=== PATIENT | female | born 1985 | race African-American/Black ===

== ENCOUNTER 2018-02-21 09:19 | Emergency (ER) | payer BC, MEDICAID ==
[2018-02-21] MEDS ORDERED: ACETAMINOPHEN 325 MG TABLET PO ONE (09:52)
[2018-02-21] MEDS ORDERED: CYCLOBENZAPRINE HCL 10 MG TABLET PO ONE (09:52)
--- NOTE | 2018-02-21 09:57 | ER Document Report ---
ED Extremity Problem, Upper - General Chief Complaint: Shoulder Pain Stated Complaint: LEFT ABDOMINAL PAIN Time Seen by Provider: 02/21/18 09:43 Mode of Arrival: Ambulatory Information source: Patient Notes: 32-year-old female presents to ED with complaint of left shoulder pain radiating to left shoulder and states sometimes her fingers feel a little stiff. She states the pain is also interscapular area. She states it started while she was carrying some grocery bags. She has not lifted anything heavy she has not fallen or injured herself in any way. Respirations are regular unlabored speaking in clear complete sentences ambulates with a steady gait and no acute distress at this time. TRAVEL OUTSIDE OF THE [place] IN LAST 30 DAYS: No - HPI Patient complains to provider of: Left, Arm, Shoulder Onset: This morning Recent injury: No Where: Home, Outdoors Quality of pain: Achy, Sharp Severity of pain: Moderate Pain Level: 3 Context: Other - Carrying grocery bags - Related Data Allergies/Adverse Reactions: No Known Allergies Allergy (Verified 12/24/15 14:34) Past Medical History - General Information source: Patient - Social History Smoking Status: Never Smoker Cigarette use (# per day): No Chew tobacco use (# tins/day): No Smoking Education Provided: No Frequency of alcohol use: None Drug Abuse: None Occupation: electrician assistant Lives with: Family Family History: Arthritis, DM, Hypertension, Malignancy Patient has suicidal ideation: No Patient has homicidal ideation: No - Medical History Medical History: Other - Morbidly obese at 169 kg - Past Medical History Cardiac Medical History: Reports: Hx Hypertension Pulmonary Medical History: Reports: Hx Asthma EENT Medical History: Reports: None Neurological Medical History: Reports: None Endocrine Medical History: Reports: Other - States she been told she is prediabetic Renal/ Medical History: Reports: None Malignancy Medical History: Reports: None GI Medical History: Reports: None Musculoskeltal Medical History: Reports Hx Musculoskeletal Deformity, Reports Other - Morbidly obese Skin Medical History: Reports None Psychiatric Medical History: Reports: None Traumatic Medical History: Reports: None Surgical Hx: Negative Past Surgical History: Reports: None, Hx Oral Surgery Review of Systems - Review of Systems Constitutional: No symptoms reported EENT: No symptoms reported Cardiovascular: No symptoms reported Respiratory: No symptoms reported Gastrointestinal: No symptoms reported Genitourinary: No symptoms reported Female Genitourinary: No symptoms reported Musculoskeletal: Joint pain, Muscle pain, Muscle stiffness. denies: Joint swelling Skin: No symptoms reported Hematologic/Lymphatic: No symptoms reported Neurological/Psychological: No symptoms reported Physical Exam - Vital signs Vitals: Temp Pulse Resp BP Pulse Ox 98.1 F 98 20 149/90 H 98 02/21/18 09:26 02/21/18 09:26 02/21/18 09:26 02/21/18 09:26 02/21/18 09:26 Interpretation: Normal - General General appearance: Appears well, Alert - HEENT Head: Normocephalic, Atraumatic Eyes: Normal Pupils: PERRL - Respiratory Respiratory status: No respiratory distress Chest status: Nontender Breath sounds: Normal Chest palpation: Normal - Cardiovascular Rhythm: Regular Heart sounds: Normal auscultation Murmur: No - Abdominal Inspection: Normal Distension: No distension Bowel sounds: Normal Tenderness: Nontender Organomegaly: No organomegaly - Back Back: Normal, Nontender - Extremities General upper extremity: Normal inspection, Normal color, Normal temperature General lower extremity: Normal inspection, Nontender, Normal color, Normal ROM , Normal temperature, Normal weight bearing. No: Cyndi's sign Shoulder: Tender, Limited ROM - Due to pain patient has full range of motion but it is with pain. No: Abrasion, Deformity, Dislocation, Ecchymosis, Instability, Laceration - Neurological Neuro grossly intact: Yes Cognition: Normal Orientation: AAOx4 Hendricks Coma Scale Eye Opening: Spontaneous Hendricks Coma Scale Verbal: Oriented Hendricks Coma Scale Motor: Obeys Commands Hendricks Coma Scale Total: 15 Speech: Normal Motor strength normal: LUE, RUE, LLE, RLE Sensory: Normal - Psychological Associated symptoms: Normal affect, Normal mood - Skin Skin Temperature: Warm Skin Moisture: Dry Skin Color: Normal Course - Re-evaluation Re-evalutation: 02/21/18 11:14 X-rays discussed with patient and written report of x-ray given to patient. Patient is given instructions on Tylenol and muscle relaxers and instructed to follow-up with orthopedics which will be open on Friday. Patient also follow- up with her primary doctor. Patient was able to verbalize understanding of instructions and agree agree with treatment plan. Patient was also encouraged to use ice and heat to the area. - Vital Signs Vital signs: Temp Pulse Resp BP Pulse Ox 98.1 F 98 20 149/90 H 98 02/21/18 09:26 02/21/18 09:26 02/21/18 09:26 02/21/18 09:26 02/21/18 09:26 - Diagnostic Test Radiology reviewed: Image reviewed, Reports reviewed Discharge - Discharge Clinical Impression: scapula area pain Shoulder pain, left Qualifiers: Chronicity: acute Qualified Code(s): M25.512 - Pain in left shoulder HTN (hypertension) Qualifiers: Hypertension type: unspecified Qualified Code(s): I10 - Essential (primary) hypertension Condition: Stable Disposition: HOME, SELF-CARE Additional Instructions: You were seen today for left shoulder and scapular pain with no acute injury. Exercise Program for the Shoulder Since the shoulder moves in so many directions, the joint attachment is weak. Muscles provide most of the stability to the shoulder. You must exercise your shoulder to prevent painful instability or stiffening. PASSIVE - These may be begun within a few days of the injury. While standing, lean forward, allowing the arm to hang down towards the floor. Move the arm in small circles while slowly twisting your chest towards and away from the hanging arm. Do this for one minute. ACTIVE - These may be performed when the doctor gives permission. Begin with the arms at the sides. Raise the arms forward (shoulder's width apart) until they reach shoulder level. Then slowly swing both arms back until they are aiming straight out away from each other. Then bring them forward again, and finally, lower them to your sides. Repeat 20 to 30 times. As you improve, put weights in your hands for the exercise. Start with one pound, and work up to 10 pounds. Never use more than is comfortable. Athletes may work up to 30 pounds. Acetaminophen Acetaminophen may be taken for pain relief or fever control. It's much safer than aspirin, offering a wider range of "safe" dosages. It is safe during . Some brand names are Tylenol, Panadol, Datril, Anacin 3, Tempra, and Liquiprin. Acetaminophen can be repeated every four hours. The following are maximum recommended dosages: WEIGHT Dose Drops Elixir Chewable( 80mg) (LBS.) drprs=droppers tsp=teaspoon 6 40 mg .4 ml (1/2) 6-11 80 mg .8 ml (full) 1/2 tsp 1 tab 12-16 120 mg 1 1/2 drprs 3/4 tsp 1 1/2 tabs 17-23 160 mg 2 drprs 1 tsp 2 tabs 24-30 240 mg 3 drprs 1 1/2 tsp 3 tabs 30-35 320 mg 2 tsp 4 tabs 36-41 360 mg 2 1/4 tsp 4 1 /2 tabs 42-47 400 mg 2 1/2 tsp 5 tabs 48-53 480 mg 3 tsp 6 tabs 54-59 520 mg 3 1/4 tsp 6 1 /2 tabs 60-64 560 mg 3 1/2 tsp 7 tabs 65-70 600 mg 3 3/4 tsp 7 1 /2 tabs 71-76 640 mg 4 tsp 8 tabs 77-82 720 mg 4 1/2 tsp 9 tabs 83-88 800 mg 5 tsp 10 tabs >89 pounds or adults 650 mg to 900 mg Acetaminophen can be repeated every four hours. Maximum daily dose not to exceed 4000 mg. These maximum recommended dosages are slightly higher than the dosages written on the product container, but these dosages are very safe and well below the toxic dosage for acetaminophen. Muscle Relaxers Muscle relaxing medications are usually prescribed for acute muscle spasm or injury to the neck and back. They are often combined with antiinflammatory pain medication for increased relief. You may stop the muscle relaxer when the pain and stiffness have improved. Start the medication again if spasms recur. Muscle relaxers may cause drowsiness, especially with the first dose. Do not operate machinery or drive while under the effects of the medication. Most muscle relaxers last up to 24 hours. Do not combine the medication with alcohol. FOLLOW-UP CARE: If you have been referred to a physician for follow-up care, call the physician s office for an appointment as you were instructed or within the next two days. If you experience worsening or a significant change in your symptoms, notify the physician immediately or return to the Emergency Department at any time for re-evaluation. Prescriptions: Cyclobenzaprine HCl [Flexeril 10 mg Tablet] 10 mg PO TIDP PRN #15 tab PRN Reason: Forms: Elevated Blood Pressure, Return to Work Referrals: SISI WOO PA-C [Primary Care Provider] - Follow up as needed YADIRA MEDINA MD [ACTIVE STAFF] - Follow up as needed
--- NOTE | 2018-02-21 11:04 | RADIOLOGY REPORT (SQ) ---
EXAM DESCRIPTION: SHOULDER LEFT 2 OR MORE VIEWS COMPLETED DATE/TIME: 02/21/2018 10:33 am REASON FOR STUDY: left shoulder and scapula pain COMPARISON: None. NUMBER OF VIEWS: Three views. TECHNIQUE: Internal rotation, external rotation, and Y view images acquired of the left shoulder. LIMITATIONS: None. FINDINGS: No acute fracture or bony abnormality identified. Minimal dorsal spondylosis. IMPRESSION: Normal left shoulder. TECHNICAL DOCUMENTATION: JOB ID: [id number] 2010 [employer]- All Rights Reserved Reading location - IP/workstation name: [email or web address]
[2018-02-21 11:24] VITALS: BP 149/87
== END 2018-02-21 11:24 | disposition home or self-care (01) ==
LOC: ER 09:19
DX: M25.512 Pain in left shoulder (principal); I10 Essential (primary) hypertension; J45.909 Unspecified asthma, uncomplicated; E66.01 Morbid (severe) obesity due to excess calories; Z68.43 Body mass index [BMI] 50.0-59.9, adult
CPT/HCPCS: 99283

== ENCOUNTER → 2018-08-14 | Outpatient (CLI) | payer OTHER ==
[2018-08-14 08:59] LABS: ABSOLUTE EOSINOPHILS # (AUTO) 0.3 10^3/uL (0.0-0.6); ABSOLUTE LYMPHOCYTES (AUTO) 2.4 10^3/uL (0.5-4.7); ABSOLUTE MONOCYTES (AUTO) 0.5 10^3/uL (0.1-1.4); ABSOLUTE NEUT (AUTO) 2.7 10^3/uL (1.7-8.2); BASOPHILS % (AUTO) 0.6 % (0-2); EOSINOPHILS % (AUTO) 4.9 % (0-6); HEMATOCRIT 38.3 % (36.0-47.0); HEMOGLOBIN 12.9 g/dL (12.0-15.5); MEAN CORPUSCULAR HEMOGLOBIN 29.7 pg (27.0-33.4); MEAN CORPUSCULAR HGB CONC 33.8 g/dL (32.0-36.0); MEAN CORPUSCULAR VOLUME 88 fl (80-97); MONOCYTES % (AUTO) 7.7 % (3-13); PLATELET COUNT 427 10^3/uL (150-450); RED BLOOD COUNT 4.35 10^6/uL (3.72-5.28); RED CELL DISTRIBUTION WIDTH 14.5 % (11.5-14.0); SEGMENTED NEUTROPHILS % (AUTO) 45.8 % (42-78); TOTAL CELLS COUNTED % (AUTO) 100 %; WHITE BLOOD COUNT 5.9 10^3/uL (4.0-10.5)
[2018-08-14 09:18] LABS: ALANINE AMINOTRANSFERASE 15 U/L (9-52); ALBUMIN 3.9 g/dL (3.5-5.0); ALKALINE PHOSPHATASE 75 U/L (38-126); ANION GAP 12 (5-19); ASPARTATE AMINO TRANSFERASE 16 U/L (14-36); BILIRUBIN,DIRECT 0.1 mg/dL (0.0-0.4); BILIRUBIN,TOTAL 0.2 mg/dL (0.2-1.3); BLOOD UREA NITROGEN 14 mg/dL (7-20); C-REACTIVE PROTEIN 16.8 mg/L (<10.0); CALCIUM 9.3 mg/dL (8.4-10.2); CARBON DIOXIDE 27 mmol/L (22-30); CHLORIDE 103 mmol/L (98-107); CHOLESTEROL 174.87 mg/dL (0-200); GLUCOSE 113 mg/dL (75-110); POTASSIUM 4.7 mmol/L (3.6-5.0); SODIUM 141.6 mmol/L (137-145); TOTAL PROTEIN 7.7 g/dL (6.3-8.2); TRIGLYCERIDES 80 mg/dL (<150)
[2018-08-14 09:27] LABS: DIRECT LDL 129 mg/dL (<100)
== END ==
LOC: CCC 08:10
PROVIDERS: ATTEND Family Medicine
DX: Z00.00 Encounter for general adult medical examination without abnormal findings (principal)
CPT/HCPCS: 36415; 80053; 80061; 82306; 83036; 85025; 86140; 86430

== ENCOUNTER → 2018-09-09 | Outpatient (CLI) | payer OTHER ==
--- NOTE | 2018-09-09 16:40 | RADIOLOGY REPORT (SQ) ---
EXAM DESCRIPTION: VENOUS UNILATERAL LOWER COMPLETED DATE/TIME: 09/09/2018 4:32 pm REASON FOR STUDY: RIGHT LEG PAIN M79.661 PAIN IN RIGHT LOWER LEG COMPARISON: None. TECHNIQUE: Dynamic and static emerson scale and color images acquired of the right leg venous system. S elected spectral images acquired with additional compression and augmentation maneuvers. The contrala teral common femoral vein and saphenofemoral junction were also imaged. Images stored on PACS. LIMITATIONS: None. FINDINGS: COMMON FEMORAL: Normal phasicity, compression and augmentation. No visualized echogenic ma terial on emerson scale. No defects on color images. FEMORAL: Normal compression and augmentation. No visualized echogenic material on emerson scale. No defe cts on color images. POPLITEAL: Normal compression, augmentation. No visualized echogenic material on emerson scale. No defec ts on color images. CALF VESSELS: Normal compression, augmentation. No visualized echogenic material on emerson scale. No de fects on color images. GSV and SSV: Normal compression, augmentation. No visualized echogenic material on emerson scale. No def ects on color images. ANY DEEP VENOUS INSUFFICIENCY: Not evaluated. ANY EVIDENCE OF POPLITEAL CYST: No. OTHER: No other significant finding. CONTRALATERAL COMMON FEMORAL VEIN AND SAPHENOFEMORAL JUNCTION: Normal phasicity, compression and augmentation. No visualized echogenic material on emerson scale. No de fects on color images. IMPRESSION: NO EVIDENCE DVT OR SVT IN THE RIGHT LEG. TECHNICAL DOCUMENTATION: JOB ID: [id number] [employer]- All Rights Reserved Reading location - IP/workstation name: [email or web address]
== END ==
LOC: SP 15:30
DX: M79.661 Pain in right lower leg (principal); M79.89 Other specified soft tissue disorders
CPT/HCPCS: 93971

== ENCOUNTER 2019-02-20 07:00 | Emergency (ER) | payer SELFPAY ==
[2019-02-20] MEDS ORDERED: KETOROLAC TROMETHAMINE 60 MG/2 ML SDV IM ONE (09:20)
--- NOTE | 2019-02-20 09:23 | ER Document Report ---
HPI - HPI Patient complains to provider of: Back pain Time Seen by Provider: 02/20/19 08:13 Pain Level: 2 Context: Patient is a 33-year-old morbidly obese female presents to the emergency department for generalized lower back pain and bilateral knee pain. Patient states this past week she "overdid it." States she is been moving and has been lifting a lot of heavy boxes. Patient states she has had continued lower back pain and now "clicking" in bilateral knees. States she does have a history of arthritis but was more concerned of her lower back pain. Patient's denying any urinary retention, loss of bowel or bladder. Patient's denying any numbness or tingling in any extremity. Patient states she finished her menstrual cycle yesterday. States she is not and is wishing to decline hCG testing prior to Toradol administration. Past medical history: Depression Medications: Wellbutrin Allergies: None Surgical history: None - CONSTITUTIONAL Constitutional: DENIES: Fever, Chills - EENT EENT: DENIES: Sore Throat, Ear Pain, Eye problems - NEURO Neurology: DENIES: Headache, Weakness, Vision blurred, Dizzinesss / Vertigo - CARDIOVASCULAR Cardiovascular: DENIES: Chest pain - RESPIRATORY Respiratory: DENIES: Trouble Breathing, Coughing - GASTROINTESTINAL Gastrointestinal: DENIES: Abdominal Pain, Black / Bloody Stools - URINARY Urinary: DENIES: Dysuria, Urgency, Frequency - REPRODUCTIVE Reproductive: DENIES: : - MUSCULOSKELETAL Musculoskeletal: REPORTS: Extremity pain Past Medical History - General Information source: Patient - Social History Smoking Status: Unknown if Ever Smoked Chew tobacco use (# tins/day): No Frequency of alcohol use: None Drug Abuse: None Family History: Arthritis, DM, Hypertension, Malignancy Patient has suicidal ideation: No Patient has homicidal ideation: No - Past Medical History Cardiac Medical History: Reports: Hx Hypertension Pulmonary Medical History: Reports: Hx Asthma Renal/ Medical History: Denies: Hx Peritoneal Dialysis Musculoskeletal Medical History: Reports Hx Musculoskeletal Deformity Past Surgical History: Reports: Hx Oral Surgery Vertical Provider Document - CONSTITUTIONAL Agree With Documented VS: Yes Notes: GENERAL: Morbidly obese alert, interacts well. No acute distress. HEAD: Normocephalic, atraumatic. EYES: Pupils equal, round, and reactive to light. Extraocular movements intact. ENT: Oral mucosa moist, tongue midline. [Nares patent, no nasal septal hematoma, TM's intact.] NECK: Full range of motion. Supple. Trachea midline. LUNGS: Clear to auscultation bilaterally, no wheezes, rales, or rhonchi. No respiratory distress. HEART: Regular rate and rhythm. No murmur ABDOMEN: Soft, non-tender. Non-distended. Bowel sounds present in all 4 quadrants. EXTREMITIES: Moves all 4 extremities spontaneously. No edema, normal radial and dorsalis pedis pulses bilaterally. No cyanosis. 5 out of 5 strength all 4 extremities. No pain upon palpation bilateral knees anterior and posterior. No obvious Vázquez's cyst noted bilaterally. BACK: no cervical, thoracic, lumbar midline tenderness. No saddle anesthesia, normal distal neurovascular exam. Bilateral paraspinal lumbar pain noted. NEUROLOGICAL: Alert and oriented x3. Normal speech. cranial nerves II through XII grossly intact PSYCH: Normal affect, normal mood. SKIN: Warm, dry, normal turgor. No rashes or lesions noted. - INFECTION CONTROL TRAVEL OUTSIDE OF THE [place] IN LAST 30 DAYS: No Course - Re-evaluation Re-evalutation: 02/20/19 09:30 Discussed treatment of Toradol, Flexeril, Lidoderm patches in the emergency department. Patient's pain does not seem to be spinal in nature. Upon palpation all of her pain is paraspinal bilateral lumbar region. Patient has 5 out of 5 strength in all 4 extremities. No urinary retention or loss of bowel or bladder. Patient wishes to decline Flexeril in the emergency department. States Flexeril typical makes her tired and she will take it at home. Discussed continued follow-up with primary care provider and close return precautions. Patient stable for discharge. - Vital Signs Vital signs: Temp Pulse Resp BP Pulse Ox 98.2 F 89 20 142/79 H 99 02/20/19 07:06 02/20/19 07:06 02/20/19 07:06 02/20/19 07:06 02/20/19 07:06 Discharge - Discharge Clinical Impression: Arthritis Lower back pain Qualifiers: Chronicity: acute Back pain laterality: bilateral Sciatica presence: without sciatica Qualified Code(s): M54.5 - Low back pain Obesity Qualifiers: Obesity type: unspecified obesity type Obesity classification: adult class 3 (BMI >= 40) Serious obesity comorbidity presence: unspecified whether serious comorbidity present Body mass index: BMI 50.0-59.9 Qualified Code(s): E66.01 - Morbid (severe) obesity due to excess calories; Z68.43 - Body mass index (BMI) 50-59.9, adult Condition: Stable Disposition: HOME, SELF-CARE Instructions: Low Back Pain ([facility]), Warm Packs ([facility]) Additional Instructions: You have been seen in the Emergency Department (ED) today for back pain. Your workup and exam have not shown any acute abnormalities and you are likely suffering from muscle strain or possible problems with your discs, but there is no treatment that will fix your symptoms at this time. Please take the naproxen that has been prescribed as directed. You should also purchase a local lidocaine cream such as "aspercreme with lidocaine" and use per bottle instructions to the affected area. Apply heat to the area as often as you are able. Continue to keep active and avoid prolonged periods of bed rest. Please follow up with your doctor as soon as possible regarding today's ED visit and your back pain. Return to the ED for worsening back pain, fever, weakness or numbness of either leg, or if you develop either (1) an inability to urinate or have bowel movements, or (2) loss of your ability to control your bathroom functions (if you start having "accidents"), or if you develop other new symptoms that concern you.concern you. Prescriptions: Cyclobenzaprine HCl [Flexeril 10 mg Tablet] 10 mg PO TIDP PRN #15 tab PRN Reason: Naproxen 500 mg PO BID #20 tablet Referrals: [facility] [Primary Care Provider] - Follow up as needed
[2019-02-20] MEDS ORDERED: LIDOCAINE 5% (700 MG) TRANSDERMAL ADH..PATCH TP ONE (09:31)
[2019-02-20 10:11] VITALS: BP 129/76
== END 2019-02-20 10:10 | disposition home or self-care (01) ==
LOC: ER 07:00
DX: A18.01 Tuberculosis of spine (principal); M54.5 Low back pain; E66.01 Morbid (severe) obesity due to excess calories; Z68.43 Body mass index [BMI] 50.0-59.9, adult; M54.9 Dorsalgia, unspecified; M25.561 Pain in right knee; M25.562 Pain in left knee; I10 Essential (primary) hypertension; J45.909 Unspecified asthma, uncomplicated
CPT/HCPCS: 99283; 96372; J1885

== ENCOUNTER → 2019-05-25 | Outpatient (CLI) | payer OTHER ==
[2019-05-25 15:44] LABS: ABSOLUTE BASOPHILS # (AUTO) 0.1 10^3/uL (0.0-0.2); ABSOLUTE EOSINOPHILS # (AUTO) 0.4 10^3/uL (0.0-0.6); ABSOLUTE LYMPHOCYTES (AUTO) 3.3 10^3/uL (0.5-4.7); ABSOLUTE MONOCYTES (AUTO) 0.5 10^3/uL (0.1-1.4); ABSOLUTE NEUT (AUTO) 2.7 10^3/uL (1.7-8.2); BASOPHILS % (AUTO) 0.9 % (0-2); EOSINOPHILS % (AUTO) 5.1 % (0-6); HEMATOCRIT 36.8 % (36.0-47.0); HEMOGLOBIN 12.2 g/dL (12.0-15.5); LYMPHOCYTES % (AUTO) 47.7 % (13-45); MEAN CORPUSCULAR HEMOGLOBIN 29.7 pg (27.0-33.4); MEAN CORPUSCULAR HGB CONC 33.1 g/dL (32.0-36.0); MEAN CORPUSCULAR VOLUME 90 fl (80-97); MONOCYTES % (AUTO) 7.6 % (3-13); PLATELET COUNT 437 10^3/uL (150-450); RED BLOOD COUNT 4.11 10^6/uL (3.72-5.28); RED CELL DISTRIBUTION WIDTH 14.2 % (11.5-14.0); SEGMENTED NEUTROPHILS % (AUTO) 38.7 % (42-78); TOTAL CELLS COUNTED % (AUTO) 100 %; WHITE BLOOD COUNT 6.9 10^3/uL (4.0-10.5)
[2019-05-25 16:17] LABS: ALBUMIN 4.1 g/dL (3.5-5.0); ALKALINE PHOSPHATASE 72 U/L (38-126); ANION GAP 9 (5-19); ASPARTATE AMINO TRANSFERASE 20 U/L (14-36); BILIRUBIN,DIRECT 0.3 mg/dL (0.0-0.4); BILIRUBIN,TOTAL 0.3 mg/dL (0.2-1.3); BLOOD UREA NITROGEN 12 mg/dL (7-20); CALCIUM 9.6 mg/dL (8.4-10.2); CARBON DIOXIDE 30 mmol/L (22-30); CHLORIDE 101 mmol/L (98-107); GLUCOSE 75 mg/dL (75-110); POTASSIUM 4.6 mmol/L (3.6-5.0); TOTAL PROTEIN 7.9 g/dL (6.3-8.2)
[2019-05-25 16:25] LABS: ERYTHROCYTE SEDIMENTATION RATE 42 mm/hr (0-20)
== END ==
LOC: CCC 14:01
DX: I82.401 Acute embolism and thrombosis of unspecified deep veins of right lower extremity (principal)
CPT/HCPCS: 36415; 80053; 83036; 84550; 85025; 85652

== ENCOUNTER → 2019-05-25 | Outpatient (CLI) | payer SELFPAY ==
--- NOTE | 2019-05-25 19:07 | XCELERA REPORT ---
[address] [facility] [address] Lower Extremity Venous Evaluation Procedure: Color flow and duplex imaging of the veins of the right lower extremity as well as the left Common Femoral vein. Right Sided Venous Evaluation Much swelling,noted. Normal vessel filling wall to wall, compression and augmentation as well as Colour flow down to the infrageniculate veins. Left Sided Venous Evaluation The left common femoral vein is fully compressible. Spontaneous and phasic flow is present in the left common femoral vein. Interpretation Summary No duplex evidence of DVT or obstruction in the right lower extremity nor in the left Common Femoral vein. Name: ALEXIA SANCHEZ V Age: 33 yrs Gender: Female : 1985 Patient Status: Outpatient Patient Location: Study Date: 05/25/2019 01:22 PM Reason For Study: RLE SWELLING Ordering Physician: DIEGO CLEVELAND Performed By: Corrina New : DIEGO CLEVELAND > Zak Stover
== END ==
LOC: SP 12:16
PROVIDERS: ATTEND Family Medicine
DX: I82.401 Acute embolism and thrombosis of unspecified deep veins of right lower extremity (principal)
CPT/HCPCS: 93971

== ENCOUNTER → 2020-02-16 | Outpatient (CLI) | payer OTHER ==
[2020-02-16 09:03] LABS: ABSOLUTE EOSINOPHILS # (AUTO) 0.3 10^3/uL (0.0-0.6); ABSOLUTE LYMPHOCYTES (AUTO) 2.5 10^3/uL (0.5-4.7); ABSOLUTE MONOCYTES (AUTO) 0.4 10^3/uL (0.1-1.4); ABSOLUTE NEUT (AUTO) 2.5 10^3/uL (1.7-8.2); BASOPHILS % (AUTO) 0.8 % (0-2); HEMATOCRIT 37.1 % (36.0-47.0); HEMOGLOBIN 12.3 g/dL (12.0-15.5); LYMPHOCYTES % (AUTO) 43.4 % (13-45); MEAN CORPUSCULAR HEMOGLOBIN 30.1 pg (27.0-33.4); MEAN CORPUSCULAR HGB CONC 33.2 g/dL (32.0-36.0); MEAN CORPUSCULAR VOLUME 91 fl (80-97); MONOCYTES % (AUTO) 7.4 % (3-13); PLATELET COUNT 322 10^3/uL (150-450); RED CELL DISTRIBUTION WIDTH 14.8 % (11.5-14.0); SEGMENTED NEUTROPHILS % (AUTO) 43.4 % (42-78); TOTAL CELLS COUNTED % (AUTO) 100 %; WHITE BLOOD COUNT 5.8 10^3/uL (4.0-10.5)
[2020-02-16 09:35] LABS: ALBUMIN 3.7 g/dL (3.5-5.0); ALKALINE PHOSPHATASE 65 U/L (38-126); ANION GAP 5 (5-19); ASPARTATE AMINO TRANSFERASE 19 U/L (14-36); BILIRUBIN,TOTAL 0.3 mg/dL (0.2-1.3); BLOOD UREA NITROGEN 13 mg/dL (7-20); C-REACTIVE PROTEIN 11.6 mg/L (<10.0); CALCIUM 8.9 mg/dL (8.4-10.2); CARBON DIOXIDE 28 mmol/L (22-30); CHLORIDE 103 mmol/L (98-107); CHOLESTEROL 156.92 mg/dL (0-200); GLUCOSE 124 mg/dL (75-110); IRON 50.9 ug/dL (37-170); POTASSIUM 4.2 mmol/L (3.6-5.0); TOTAL PROTEIN 7.4 g/dL (6.3-8.2); TRIGLYCERIDES 75 mg/dL (<150)
[2020-02-16 09:44] LABS: DIRECT LDL 116 mg/dL (<100)
== END ==
LOC: CCC 08:00
PROVIDERS: ATTEND Family Medicine
DX: Z00.00 Encounter for general adult medical examination without abnormal findings (principal)
CPT/HCPCS: 36415; 80053; 80061; 83036; 83540; 84443; 85025; 85652; 86038; 86140

== ENCOUNTER 2020-02-22 21:41 | Emergency (ER) | payer SELFPAY ==
--- NOTE | 2020-02-22 22:46 | ER Document Report ---
ED Medical Screen (RME) - General Chief Complaint: Abdominal Pain Stated Complaint: ABDOMINAL PAIN Time Seen by Provider: 02/22/20 22:44 Primary Care Provider: DIEGO CLEVELAND MD [Primary Care Provider] - Follow up as needed Information source: Patient Notes: Patient presents complaining of abdominal pain that started this morning. Patient states pain is severe and is preventing her from sleeping. Patient states that she did notice a bulge near her umbilicus although states that the pain will radiate to the right upper abdominal area. Patient denies any fever, nausea vomiting or urinary symptoms. I have greeted and performed a rapid initial assessment of this patient. A comprehensive ED assessment and evaluation of the patient, analysis of test results and completion of the medical decision making process will be conducted by additional ED providers. TRAVEL OUTSIDE OF THE [place] IN LAST 30 DAYS: No - Related Data Allergies/Adverse Reactions: No Known Allergies Allergy (Verified 12/24/15 14:34) Past Medical History - Past Medical History Cardiac Medical History: Reports: Hx Hypertension Pulmonary Medical History: Reports: Hx Asthma Renal/ Medical History: Denies: Hx Peritoneal Dialysis Musculoskeltal Medical History: Reports Hx Musculoskeletal Deformity Past Surgical History: Reports: Hx Oral Surgery Physical Exam - Vital signs Vitals: Temp Pulse Resp BP Pulse Ox 98.5 F 89 18 141/74 H 98 02/22/20 21:44 02/22/20 21:44 02/22/20 21:44 02/22/20 21:44 02/22/20 21:44 - Abdominal Inspection: Morbidly Obese Tenderness: Tender - Periumbilical Course - Vital Signs Vital signs: Temp Pulse Resp BP Pulse Ox 98.5 F 89 18 141/74 H 98 02/22/20 21:44 02/22/20 21:44 02/22/20 21:44 02/22/20 21:44 02/22/20 21:44 Doctor's Discharge - Discharge Referrals: DIEGO CLEVELAND MD [Primary Care Provider] - Follow up as needed
[2020-02-22 23:29] LABS: ABSOLUTE BASOPHILS # (AUTO) 0.2 10^3/uL (0.0-0.2); ABSOLUTE EOSINOPHILS # (AUTO) 0.4 10^3/uL (0.0-0.6); ABSOLUTE LYMPHOCYTES (AUTO) 3.1 10^3/uL (0.5-4.7); ABSOLUTE MONOCYTES (AUTO) 0.5 10^3/uL (0.1-1.4); ABSOLUTE NEUT (AUTO) 2.9 10^3/uL (1.7-8.2); BASOPHILS % (AUTO) 2.2 % (0-2); EOSINOPHILS % (AUTO) 5.9 % (0-6); HEMATOCRIT 37.2 % (36.0-47.0); HEMOGLOBIN 12.6 g/dL (12.0-15.5); LYMPHOCYTES % (AUTO) 43.8 % (13-45); MEAN CORPUSCULAR HEMOGLOBIN 30.4 pg (27.0-33.4); MEAN CORPUSCULAR HGB CONC 33.9 g/dL (32.0-36.0); MEAN CORPUSCULAR VOLUME 90 fl (80-97); MONOCYTES % (AUTO) 7.6 % (3-13); PLATELET COUNT 335 10^3/uL (150-450); RED BLOOD COUNT 4.15 10^6/uL (3.72-5.28); RED CELL DISTRIBUTION WIDTH 14.9 % (11.5-14.0); SEGMENTED NEUTROPHILS % (AUTO) 40.5 % (42-78); TOTAL CELLS COUNTED % (AUTO) 100 %; WHITE BLOOD COUNT 7.1 10^3/uL (4.0-10.5)
[2020-02-22 23:32] LABS: APPEARANCE,URINE CLEAR; BILIRUBIN,URINE NEGATIVE (NEGATIVE); COLOR,URINE YELLOW; GLUCOSE, URINE NEGATIVE (NEGATIVE); KETONES,URINE NEGATIVE (NEGATIVE); LEUKOCYTE ESTERASE,URINE NEGATIVE (NEGATIVE); NITRITE,URINE NEGATIVE (NEGATIVE); PROTEIN,URINE NEGATIVE (NEGATIVE); URINE SPECIFIC GRAVITY 1.024; UROBILINOGEN,URINE NEGATIVE mg/dL (<2.0)
[2020-02-22 23:45] LABS: ALBUMIN 3.9 g/dL (3.5-5.0); ALKALINE PHOSPHATASE 70 U/L (38-126); ANION GAP 8 (5-19); ASPARTATE AMINO TRANSFERASE 19 U/L (14-36); BILIRUBIN,TOTAL 0.2 mg/dL (0.2-1.3); BLOOD UREA NITROGEN 20 mg/dL (7-20); CALCIUM 9.1 mg/dL (8.4-10.2); CARBON DIOXIDE 28 mmol/L (22-30); CHLORIDE 101 mmol/L (98-107); GLUCOSE 110 mg/dL (75-110); POTASSIUM 4.2 mmol/L (3.6-5.0); TOTAL PROTEIN 7.7 g/dL (6.3-8.2)
--- NOTE | 2020-02-23 00:31 | RADIOLOGY REPORT (SQ) ---
Ultrasound of the right upper quadrant of the abdomen: 02/22/2020 11:28 PM CDT Technique: Multiple grayscale color Doppler images of the right upper quadrant of the abdomen were obtained. Comparison: None available History: 34-year old patient with right upper quadrant abdominal pain, periumbilical pain. Findings: The visualized portions of the hepatic parenchyma appear diffusely echogenic. There is no evidence to suggest intra or extrahepatic ductal dilatation. There is normal directional flow seen within the main portal vein. There is no evidence of pericholecystic fluid, gallbladder wall thickening, or cholelithiasis. The gallbladder appears to contracted. Sonographic Forbes's sign was negative. The common duct measures 1-2 mm. The right kidney measures up to 12.3 cm in length. The right kidney demonstrates normal cortical echogenicity with no evidence to suggest hydronephrosis. The visualized portions of the IVC, abdominal aorta, and pancreatic head appear normal. No free intraperitoneal fluid is seen. There may be a hernia at the umbilicus. No obvious focal fluid collection is seen at this area. This measures at least 2.0 cm in transverse dimension. Impression: 1. No cholelithiasis is seen. The common duct is within normal limits of size. 2. Hepatic steatosis 3. There may be a hernia at the umbilicus.
--- NOTE | 2020-02-23 05:05 | ER Document Report ---
ED General - General Chief Complaint: Abdominal Pain Stated Complaint: ABDOMINAL PAIN Time Seen by Provider: 02/22/20 22:44 Primary Care Provider: JAIDA BENAVIDES MD [ACTIVE STAFF] - Follow up as needed DIEGO CLEVELAND MD [Primary Care Provider] - Follow up as needed Mode of Arrival: Ambulatory Information source: Patient TRAVEL OUTSIDE OF THE [place] IN LAST 30 DAYS: No - HPI Onset: Other - in the afteronn of 02/22/20 Onset/Duration: Gradual Quality of pain: Sharp Severity: Severe Pain Level: 5 Associated symptoms: None Exacerbated by: Coughing, Other - bearing down Relieved by: Denies Similar symptoms previously: Yes - patient has pain in a bulged out area just above her belly button Recently seen / treated by doctor: No Notes: 34 year old female with no significant PMH here in the ER for abdominal pain in the area of a bulge above her belly button. The patient says she has noticed an area above her belly button stick out before (several times over the last several months) but it usually can easily go back down and caused minimal pain. The patient noticed pain and a firm bulge on 02/24/20 and she could not get the pain to go away so she came to the ER. The patient's abdominal pain and bulge seemed to improve on there own while in the ER and her pain was nearly nonexistent during my exam. - Related Data Allergies/Adverse Reactions: No Known Allergies Allergy (Verified 02/22/20 22:46) Past Medical History - General Information source: Patient - Social History Smoking Status: Former Smoker Frequency of alcohol use: None Drug Abuse: None Family History: Arthritis, DM, Hypertension, Malignancy Patient has homicidal ideation: No - Past Medical History Cardiac Medical History: Reports: Hx Hypertension Pulmonary Medical History: Reports: Hx Asthma Renal/ Medical History: Denies: Hx Peritoneal Dialysis Musculoskeletal Medical History: Reports Hx Musculoskeletal Deformity Past Surgical History: Reports: Hx Oral Surgery Review of Systems - Review of Systems Constitutional: No symptoms reported EENT: No symptoms reported Cardiovascular: No symptoms reported Respiratory: No symptoms reported Gastrointestinal: Abdominal pain - with swollen area above umbilicus Genitourinary: No symptoms reported Female Genitourinary: No symptoms reported Musculoskeletal: No symptoms reported Skin: No symptoms reported Hematologic/Lymphatic: No symptoms reported Neurological/Psychological: No symptoms reported -: Yes All other systems reviewed and negative Physical Exam - Vital signs Vitals: Temp Pulse Resp BP Pulse Ox 98.5 F 89 18 141/74 H 98 02/22/20 21:44 02/22/20 21:44 02/22/20 21:44 02/22/20 21:44 02/22/20 21:44 - Notes Notes: GENERAL: Well-appearing, well-nourished and in no acute distress. HEAD: Atraumatic, normocephalic. EYES: Pupils equal round and reactive to light, extraocular movements intact, sclera anicteric, conjunctiva are normal. ENT: External ears normal, nares patent, oropharynx clear without exudates. Moist mucous membranes. NECK: Normal range of motion, supple without lymphadenopathy or JVD. LUNGS: Breath sounds clear to auscultation bilaterally and equal. No wheezes rales or rhonchi. HEART: Regular rate and rhythm without murmurs, rubs or gallops. ABDOMEN: Soft, nontender, normoactive bowel sounds. No guarding, no rebound. No masses appreciated. No hernia appreciated and no abdominal wall defect noted on my exam. EXTREMITIES: Normal range of motion, no pitting or edema. No clubbing or cyanosis. NEUROLOGICAL: Cranial nerves II through XII grossly intact. Normal speech, normal gait. PSYCH: Normal mood, normal affect. SKIN: Warm, Dry, normal turgor, no rashes or lesions noted. Course - Re-evaluation Re-evalutation: 02/23/20 05:05 The patient says she had an area above her belly button which was pushed out and causing her pain. This area has since gone away and so has her pain. The patient says she has noticed this happening for months but the reason she came to the ER today was because the area would not go back down and it was causing her much greater pain than before. US shows likely umbilical hernia but no other acute process. Patient's labs unremarkable. It sounds like the patient was able to reduce the hernia or the hernia self reduced. Either way, she has no surgical emergency at this time. Will refer to outpatient surgery. - Vital Signs Vital signs: Temp Pulse Resp BP Pulse Ox 97.8 F 79 18 134/74 H 97 02/23/20 02:15 02/23/20 02:15 02/22/20 21:44 02/23/20 02:15 02/23/20 02:15 - Laboratory Result Diagrams: 02/22/20 23:15 02/22/20 23:15 Laboratory results interpreted by me: 02/22/20 02/22/20 23:15 23:15 RDW 14.9 H Baso % (Auto) 2.2 H Seg Neutrophils % 40.5 L Sodium 136.7 L - Diagnostic Test Radiology reviewed: Image reviewed, Reports reviewed Discharge - Discharge Clinical Impression: Umbilical hernia Qualifiers: Obstruction and gangrene presence: without obstruction or gangrene Qualified Code(s): K42.9 - Umbilical hernia without obstruction or gangrene Condition: Stable Disposition: HOME, SELF-CARE Instructions: Abdominal Pain ([facility]), Umbilical Hernia ([facility]) Additional Instructions: Follow up with a Surgeon ( or one of his colleagues) for your umbilical hernia. Use Tylenol and Motrin for pain. If the hernia comes out in the future, lay flat and try push the hernia back in. If you cannot push the hernia back in and it is painful, you will need to be evaluated by a medical provider. Referrals: DIEGO CLEVELAND MD [Primary Care Provider] - Follow up as needed JAIDA BENAVIDES MD [ACTIVE STAFF] - Follow up as needed
[2020-02-23 05:13] VITALS: BP 140/83
== END 2020-02-23 05:13 | disposition home or self-care (01) ==
LOC: ER 21:41
DX: K42.9 Umbilical hernia without obstruction or gangrene (principal); R10.33 Periumbilical pain; I10 Essential (primary) hypertension
CPT/HCPCS: 36415; 76705; 80053; 81001; 83690; 84703; 85025; 99284

== ENCOUNTER → 2020-06-09 | Outpatient (CLI) | payer OTHER ==
--- NOTE | 2020-06-09 09:38 | WOMENS IMAGING REPORT ---
EXAM DESCRIPTION: PINK WARRIOR BILATERAL SCREEN IMAGES COMPLETED DATE/TIME: 06/09/2020 8:12 am REASON FOR STUDY: PINK PINK PINK Z12.31 ENCNTR SCREEN MAMMOGRAM FOR MALIGNANT NEOPLASM OF RYAN Z12.31 ENCNTR SCREEN MAMMOGRAM FOR MALIGNANT NEOPLASM OF RYAN COMPARISON: None. EXAM PARAMETERS: Standard craniocaudal and mediolateral oblique views of each breast recorded using digital acquisition. Read with the assistance of CAD. .[facility] - [employer] Version 9.2 LIMITATIONS: None. FINDINGS: No suspicious masses, suspicious calcifications or architectural distortion. No areas of c oncern. IMPRESSION: NEGATIVE MAMMOGRAM. BIRADS 1 BREAST DENSITY: b. There are scattered areas of fibroglandular density. BIRAD: ASSESSMENT: 1 NEGATIVE RECOMMENDATION: ROUTINE SCREENING COMMENT: The patient has been notified of the results by letter per MQSA requirements. Additional no tification policies are in place for contacting patient with suspicious or incomplete findings. Quality ID #[id number]: The [employer] recommends an annual screening mammogram for women aged 40 years or over. This facility utilizes a reminder system to ensure that all patients receive reminder letters, and/or direct phone calls for appointments. This includes reminders for routine scr eening mammograms, diagnostic mammograms, or other Breast Imaging Interventions when appropriate. Th is patient will be placed in the appropriate reminder system. TECHNICAL DOCUMENTATION: FINDING NUMBER: (1) ASSESSMENT: (1) JOB ID: [id number] 2010 [employer]- All Rights Reserved Reading location - IP/workstation name: [email or web address]
== END ==
LOC: WI 07:54
PROVIDERS: ATTEND Family Medicine
DX: Z12.31 Encounter for screening mammogram for malignant neoplasm of breast (principal)
CPT/HCPCS: 77067

== ENCOUNTER 2020-09-17 07:41 | Emergency (ER) | payer SELFPAY ==
--- NOTE | 2020-09-17 08:08 | ER Document Report ---
ED General - General Chief Complaint: Eye Pain Stated Complaint: EYE PAIN Time Seen by Provider: 09/17/20 08:06 TRAVEL OUTSIDE OF THE [place] IN LAST 30 DAYS: No - HPI Notes: 34-year-old female to the emergency department with complaints of right eye pain that is been getting progressively worse since Friday. She states she noticed the irritation starting after she was using an eyelash comb. She states she is not sure if she struck her eye with a comb or what happened. She states the next day she worsened make-up with glitter in it and she was wondering if maybe the glitter fell into the eye. She states when she awoke this morning that redness of the eye had gotten worse;she had discharge from the eye with worsening pain. She wears glasses but no contacts. She states she has had a corneal abrasion before and this feels similar to her. She does state that her eyes been tearing a lot and is little sensitive to light. She tried allergy eyedrops but that only made the pain worse. - Related Data Allergies/Adverse Reactions: No Known Allergies Allergy (Verified 02/22/20 22:46) Past Medical History - General Information source: Patient - Social History Smoking Status: Never Smoker Frequency of alcohol use: None Drug Abuse: None Family History: Arthritis, DM, Hypertension, Malignancy - Past Medical History Cardiac Medical History: Reports: Hx Hypertension Pulmonary Medical History: Reports: Hx Asthma Renal/ Medical History: Denies: Hx Peritoneal Dialysis Musculoskeletal Medical History: Reports Hx Musculoskeletal Deformity Past Surgical History: Reports: Hx Oral Surgery Review of Systems - Review of Systems Constitutional: denies: Chills, Fever EENT: See HPI, Eye pain, Eye discharge Cardiovascular: denies: Chest pain, Dyspnea, Syncope, Dizziness Respiratory: denies: Cough, Short of breath Gastrointestinal: denies: Abdominal pain, Diarrhea, Nausea, Vomiting Genitourinary: No symptoms reported Female Genitourinary: No symptoms reported Musculoskeletal: No symptoms reported Skin: No symptoms reported Hematologic/Lymphatic: No symptoms reported Neurological/Psychological: No symptoms reported -: Yes All other systems reviewed and negative Physical Exam - Vital signs Vitals: Temp Pulse Resp BP Pulse Ox 97.6 F 95 19 146/89 H 100 09/17/20 07:53 09/17/20 07:53 09/17/20 07:53 09/17/20 07:53 09/17/20 07:53 Interpretation: Hypertensive - Notes Notes: PHYSICAL EXAMINATION: GENERAL: Well-appearing, well-nourished and in no acute distress. HEAD: Atraumatic, normocephalic. EYES: Pupils equal round and reactive to light, extraocular movements intact, right conjunctive is injected and erythematous. Right eye is actively tearing. Left conjunctive is clear and sclera are normal in appearance. Betts lamp exam reveals a scleral abrasion on the nasal side of the right cornea. There is no evidence for corneal abrasion. There is no evidence for foreign body. There is no rust ring. There does not appear to be any dendrites or ulcerations. Funduscopic exam is normal. ENT: nares patent, oropharynx clear without exudates. Moist mucous membranes. NECK: Normal range of motion, supple without lymphadenopathy LUNGS: Breath sounds clear to auscultation bilaterally and equal. No wheezes rales or rhonchi. HEART: Regular rate and rhythm without murmurs ABDOMEN: Soft, nontender, normoactive bowel sounds. No guarding, no rebound. No masses appreciated. NEUROLOGICAL: No focal neurological deficits. Moves all extremities spontaneously and on command. Alert and oriented x4 PSYCH: Normal mood, normal affect. SKIN: Warm, Dry, normal turgor, no rashes or lesions noted. Course - Re-evaluation Re-evalutation: 09/17/20 09:01 Impression: Right scleral abrasion. We will go ahead and place on erythromycin ointment. We will also have her take Motrin and use saline eyedrops for symptom relief. We will have her follow-up with an meter changes records clerk. She does not wear contacts but she does wear glasses. Advised nothing else in the eye. Advised to stay away from make-up for at least 1 week. Patient agrees with plan. - Vital Signs Vital signs: Temp Pulse Resp BP Pulse Ox 97.6 F 95 19 146/89 H 100 09/17/20 07:53 09/17/20 07:53 09/17/20 07:53 09/17/20 07:53 09/17/20 07:53 - Laboratory Results Critical Laboratory Results Reviewed: No Critical Results - Radiology Results Critical Radiology Results Reviewed: No Critical Results Discharge - Discharge Clinical Impression: Irritation of right eye Abrasion of sclera of right eye Qualifiers: Encounter type: initial encounter Qualified Code(s): S05.8X1A - Other injuries of right eye and orbit, initial encounter Condition: Stable Disposition: HOME, SELF-CARE Additional Instructions: Today you are found to have a scleral abrasion on your eye. This could have been from eyelash comb or from the glitter makeup. No foreign body or corneal abrasion was visualized today on exam. Please use the antibiotic ointment for the next 7 days. You may take the Motrin for pain control and use refresh saline drops to help lubricate the eye. Please follow-up with the dried fruit washer. Return if you have worsening symptoms such as worsening pain, decrease in vision, fevers, swelling around the eye. Prescriptions: Ibuprofen [Motrin 600 mg Tablet] 600 mg PO Q8HP PRN #24 tablet PRN Reason: Referrals: SEBASTIÁN WING MD [ACTIVE STAFF] - Follow up in 1 week (for eye follow up)
[2020-09-17] MEDS ORDERED: TETRACAINE HCL 0.5% OPH SOLN 4 ML OU ONE (08:37)
[2020-09-17] MEDS ORDERED: IBUPROFEN 600 MG TABLET PO ONE (08:52)
[2020-09-17 09:19] VITALS: BP 145/82
[2020-09-17] MEDS ORDERED: ERYTHROMYCIN 0.5% OPH OINTMENT 3.5 GM (ER DISP) OD SCH (10:00)
== END 2020-09-17 09:16 | disposition home or self-care (01) ==
LOC: ER 07:41
DX: S05.8X1A Other injuries of right eye and orbit, initial encounter (principal); H57.11 Ocular pain, right eye; X58.XXXA Exposure to other specified factors, initial encounter; I10 Essential (primary) hypertension
CPT/HCPCS: 99283; J3490